=== PATIENT | male | born 1995 | race Caucasian/White ===

== ENCOUNTER 2019-09-12 11:33 | Emergency (ER) | payer OTHER ==
[~2019-09-12] VITALS: Ht 170.2 cm; Wt 54.0 kg
[2019-09-12 12:10] VITALS: Ht 170.2 cm; Wt 54.0 kg
[2019-09-12 13:40] VITALS: BP 122/79
== END 2019-09-12 13:47 | disposition home or self-care (01) ==
LOC: ED 11:33
DX: J06.9 Acute upper respiratory infection, unspecified (principal)